=== PATIENT | female | born 1975 | race Caucasian/White ===

== ENCOUNTER → 2017-05-27 | Outpatient (CLI) | payer BC | END | disposition home or self-care (01) | LOC: LABWHC1 09:14 | PROVIDERS: ATTEND Obstetrics & Gynecology | DX: N93.8 Other specified abnormal uterine and vaginal bleeding (principal) | CPT/HCPCS: 36415; 82670; 83001; 83002; 84146; 84439; 84443 ==

== ENCOUNTER 2017-12-14 11:03 | Day surgery (SDC) | payer BC ==
[2017-12-08 15:36] VITALS: BMI 24.2
[~2017-12-14 11:03] MED LIST: HYDROmorphone 0.5 MG/0.5 ML SYRINGE IVP PRN; LACTATED RINGERS 1,000 ML IV SCH; ONDANSETRON 4 MG/2 ML VIAL IVP ONE; Pre Op ABX Message 1 EACH MISC MISCELLANE ONE; fentaNYL (PF) 50 MCG/ML 2 ML AMP IV PRN
[2017-12-14] MEDS ORDERED: LACTATED RINGERS 1,000 ML IV ONE (11:23)
[2017-12-14] MEDS ORDERED: DEXAMETHASONE SOD PHOS (MDV) 100 MG/10 ML VIAL IVP ONE (11:24)
[2017-12-14] MEDS ORDERED: SCOPOLAMINE 1.5MG/72HR PATCH TRANSDERM ONE (11:24)
[2017-12-14] MEDS ORDERED: LIDOCAINE 1% 20 ML VIAL (10MG/ML) FOR IV START INTRADERMA ONE (11:25)
[2017-12-14] MEDS ORDERED: MIDAZOLAM 2 MG/2 ML VIAL IVP ONE (11:37)
--- NOTE | 2017-12-14 11:44 | P.HPOB ---
History of Present Illness H&P Date: 12/14/17 Chief Complaint: Menorrhagia Meg is a 42-year-old female with heavy vaginal bleeding. She is noted bleeding also occurs with intercourse her last 3 months. She is had the irregular and heavy bleeding since at least May when she had her yearly at that time she canceled the ultrasound but she is noted no change in 6 months as far is resolution of her symptoms. After lengthy discussion with the patient on treatment options, she is opted for a D&C with hysteroscopy as they're still considering having another child and this would certainly limit what else we can do for her bleeding. Risks/benefits/alternatives reviewed with patient in detail all questions are answered for her prior to proceeding to the operating room. Past Medical History Additional Past Medical History / Comment(s): Hx right hip fracture. History of Any Multi-Drug Resistant Organisms: None Reported Past Surgical History: No Surgical Hx Reported Additional Past Surgical History / Comment(s): D&C. Past Anesthesia/Blood Transfusion Reactions: Postoperative Nausea & Vomiting ( PONV) Past Psychological History: No Psychological Hx Reported Smoking Status: Never smoker Past Alcohol Use History: Occasional Past Drug Use History: None Reported - Past Family History Mother Family Medical History: No Reported History Medications and Allergies Home Medications Medication Instructions Recorded Confirmed Type No Known Home Medications 12/08/17 12/08/17 History Allergies Allergy/AdvReac Type Severity Reaction Status Date / Time No Known Allergies Allergy Verified 12/08/17 15:26 Exam Osteopathic Statement: *. No significant issues noted on an osteopathic structural exam other than those noted in the History and Physical/Consult. Vital Signs Temp Pulse Resp BP Pulse Ox 12/14/17 11:19 98.1 F 64 18 117/70 100 - OBG Physical Exam Breast: both: normal (no masses) Abdomen: bowel sounds normal, no diffuse tenderness, no bruit present, no guarding noted, no hepatomegaly, no splenomegaly, no mass Vulva: both: normal Vagina: normal moisture, no discharge Cervix: no lesion, no discharge Uterus: normal size, normal contour Adnexa: both: normal Anus/Rectum: normal perianal skin, no rectal mass, no hemorrhoids, heme negative
[2017-12-14] MEDS ORDERED: LIDOCAINE 1% INJ 10MG/ML (20 ML MDV) ONE (12:06)
[2017-12-14] MEDS ORDERED: MIDAZOLAM 2 MG/2 ML VIAL ONE (12:06)
[2017-12-14] MEDS ORDERED: fentaNYL (PF) 50 MCG/ML 2 ML AMP ONE (12:06)
[2017-12-14] MEDS ORDERED: KETOROLAC 30 MG/ML 1 ML VIAL ONE (12:06)
[2017-12-14] MEDS ORDERED: PROPOFOL 10 MG/ML 20 ML VIAL IV ONE (12:06)
--- NOTE | 2017-12-14 12:30 | P.OP ---
Date of Procedure: 12/14/17 Preoperative Diagnosis: Menorrhagia Postoperative Diagnosis: Same Procedure(s) Performed: D&C with hysteroscopy Anesthesia: BONNIE Surgeon: Candelraio Claudio Estimated Blood Loss (ml): 5 Pathology: other (Uterine curettings) Condition: stable Disposition: same day Operative Findings: Proliferative endometrium tissue pending Description of Procedure: Meg was taken to the operating suite where the general anesthetic was found be adequate. She was prepped and draped in the normal sterile fashion placed in the dorsal lithotomy position. 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 Once speculum was placed ectropion cervix is noted. Cervix was then dilated camera was inserted. Possible polyp was noted in the lining with proliferative endometrium. Camera was removed and sharp curettings of the endometrium were obtained. All this tissue was collected and placed on Telfa and sent to pathology for evaluation. Once this was accomplished, patient was taken to the recovery room in stable and satisfactory condition following removal of instruments. Plan - Discharge Summary New Discharge Prescriptions: No Action No Known Home Medications Discharge Medication List No Known Home Medications 12/08/17 [History] Patient Instructions/Handouts: *Surgery [facility] - Scopalamine Patch Instructions
[2017-12-14 12:45] VITALS: TEMP 97.4
[2017-12-14 12:51] VITALS: RESP 16
[2017-12-14 13:18] VITALS: BP 101/67; PULSE 58
== END 2017-12-14 13:45 | disposition home or self-care (01) ==
LOC: OR 11:03
PROVIDERS: ATTEND Obstetrics & Gynecology
DX: N92.0 Excessive and frequent menstruation with regular cycle (principal); N92.6 Irregular menstruation, unspecified
CPT/HCPCS: 88305; 58558; J2250; J2405; J2001; J3010; J1885; J1100; J2704

== ENCOUNTER 2018-10-09 17:11 | Emergency (ER) | payer BC ==
[2018-10-09 17:28] VITALS: BP 117/72; PULSE 78; RESP 18; TEMP 98.1
--- NOTE | 2018-10-09 17:43 | XR ---
EXAMINATION TYPE: XR foot complete LT DATE OF EXAM: 10/09/2018 CLINICAL HISTORY: Pain in the fourth phalanx of the left foot radiating the metatarsals after trippin g injury TECHNIQUE: Frontal, lateral, and oblique images of the left foot are obtained. COMPARISON: None FINDINGS: There is posterior dislocation of the proximal interphalangeal joint of the fourth digit wi th 1 mm cortical overlap. There is slight lateral subluxation at this joint. No acute fracture is see n however fracture can be reassessed on post reduction images. Very minimal degenerative changes of t he distal interphalangeal joints are seen as small marginal osteophytes. Bony productive change of th e talonavicular joint dorsally is also [employer] of minimal degenerative change. IMPRESSION: Posterior/dorsal dislocation of the proximal interphalangeal joint of the fourth digit wi th lateral subluxation.
--- NOTE | 2018-10-09 17:51 | ED ---
Lower Extremity Injury HPI - General Chief Complaint: Extremity Injury, Lower Stated Complaint: toe injury Time Seen by Provider: 10/09/18 17:26 Source: patient, RN notes reviewed, old records reviewed Mode of arrival: ambulatory Limitations: no limitations - History of Present Illness Initial Comments: Patient is a 43-year-old female presents emergency department today for evaluation for injury of her left foot. Patient worse she was stepping turbo lost her footing. She reports that she dislocated her fourth toe. Patient states that she has pain extending up to her foot. Patient states that she's a small laceration over her toe that the bleeding is stopped at this time. She denies any other complaints. - Related Data Previous Rx's Medication Instructions Recorded Ibuprofen [Motrin] 600 mg PO Q6HR PRN #30 tab 12/14/17 Allergies Allergy/AdvReac Type Severity Reaction Status Date / Time No Known Allergies Allergy Verified 12/08/17 15:26 Review of Systems ROS Statement: Those systems with pertinent positive or pertinent negative responses have been documented in the HPI. ROS Other: All systems not noted in ROS Statement are negative. Past Medical History Past Medical History: No Reported History Additional Past Medical History / Comment(s): Hx right hip fracture. History of Any Multi-Drug Resistant Organisms: None Reported Past Surgical History: No Surgical Hx Reported Additional Past Surgical History / Comment(s): D&C. Past Anesthesia/Blood Transfusion Reactions: Postoperative Nausea & Vomiting (PONV) Past Psychological History: No Psychological Hx Reported Smoking Status: Never smoker Past Alcohol Use History: Occasional Past Drug Use History: None Reported - Past Family History Mother Family Medical History: No Reported History General Exam - General Exam Comments Initial Comments: Pleasant 43-year-old female. No distress. Limitations: no limitations Head exam: Present: atraumatic Eye exam: Present: normal appearance, PERRL, EOMI. Absent: scleral icterus, conjunctival injection, periorbital swelling ENT exam: Present: normal exam, mucous membranes moist Neck exam: Present: normal inspection. Absent: tenderness, meningismus, lymphadenopathy Respiratory exam: Present: normal lung sounds bilaterally. Absent: respiratory distress, wheezes, rales, rhonchi, stridor Cardiovascular Exam: Present: regular rate, normal rhythm, normal heart sounds. Absent: systolic murmur, diastolic murmur, rubs, gallop, clicks GI/Abdominal exam: Present: soft, normal bowel sounds. Absent: distended, tenderness, guarding, rebound, rigid Left Lower Leg exam: Present: normal inspection, full ROM Ankle exam: Present: normal inspection, full ROM Foot/Toe exam: Present: dislocation (Has posterior dislocation of the left DIP fourth toe.) Neurovascular tendon exam: Present: no vascular compromise Gait: observed and normal Back exam: Present: normal inspection Neurological exam: Present: alert, oriented X3, CN II-XII intact Psychiatric exam: Present: normal affect, normal mood Skin exam: Present: warm, dry, intact, normal color. Absent: rash Course Vital Signs 10/09/18 17:27 Temperature 98.1 F Pulse Rate 78 Respiratory 18 Rate Blood Pressure 117/72 O2 Sat by Pulse 98 Oximetry Procedures - Orthopedic Joint Reduction Joint #1 Side: left Joint Reduction Location: toe Analgesia: none Shoulder Technique Used (if applicable): traction/counter-traction Post-Reduction Neuro Exam: intact Post-Reduction Vascular Exam: intact Splint Applied: Yes (NASH wrap) Medical Decision Making - Medical Decision Making Patient is a 41-year-old female presents today with left foot injury after she stepped onto a boat. She has a posterior dislocation over her left fourth PIP of her toe. Patient's toe was grounded and ice. With simple manipulation is able to relocate the toe without significant injury. She has small abrasions was cleaned and dressed with some state ointment. Patient for x-ray of the wrist shows no fracture. After I reduced the toe that she has full range of motion and is neurovascularly intact. Patient was discharged with Nash wrap and advised to take Motrin Tylenol for pain. - Radiology Data Radiology results: report reviewed Posterior dorsal dislocation of the proximal interphalangeal joint of the fourth digit with lateral subluxation. Disposition Clinical Impression: Toe joint dislocation, Foot sprain Disposition: HOME SELF-CARE Condition: Good Instructions (If sedation given, give patient instructions): Foot Sprain (ED) Additional Instructions: Patient advsied to ice the foot and toe for pain. Take Motrin and Tylenol for pain. Patient can antonio tape the toe for support of or that he was walking boot. Is patient prescribed a controlled substance at d/c from ED?: No Referrals: Karol Matthew MD [Primary Care Provider] - 1-2 days Time of Disposition: 17:50
== END 2018-10-09 18:27 | disposition home or self-care (01) ==
LOC: EC 17:11
DX: S93.125A Dislocation of metatarsophalangeal joint of left lesser toe(s), initial encounter (principal); T14.8XXA Other injury of unspecified body region, initial encounter; Z87.81 Personal history of (healed) traumatic fracture; W18.41XA Slipping, tripping and stumbling without falling due to stepping on object, initial encounter; Y92.814 Boat as the place of occurrence of the external cause
CPT/HCPCS: 28660; 99284